=== PATIENT | male | born 1965 | race Caucasian/White ===

== ENCOUNTER 2022-09-18 19:29 | Emergency (ER) | payer MEDICAID, OTHER ==
[~2022-09-18] VITALS: Ht 175.3 cm; Wt 170.1 kg
[~2022-09-18 19:29] MED LIST: ALBUT2 CONTNEB; AZIT1PAC9 PO; FLUT1DIS3 INH; MULT-24 PO; OMEP20CA4 PO; POTA10TA PO; PRED20TA PO
[2022-09-18 19:49] VITALS: BP 187/97
--- NOTE | 2022-09-18 19:56 | NUR ---
BIBSELF FROM HOME C/O ULCER WOUND TO LEFT LOWER BUTTOCK X1 YEAR. PT A/OX4. TOLERATING R/A AT 91%. PT CHANGED IN GOWN. SAFETY MEASURES IN PLACE.
--- NOTE | 2022-09-18 19:57 | NUR ---
DR GUERRERO SOLIS AT PT'S BEDSIDE FOR EVAL
[2022-09-18] MEDS ORDERED: CLINDAMYCIN HCL 150 MG CAPSULE ONE (20:13)
[2022-09-18] MEDS ORDERED: CLIN300C12 PO (20:23)
[2022-09-18] MEDS ORDERED: CLINDAMYCIN HCL 150 MG CAPSULE PO ONE (20:30)
== END 2022-09-18 20:45 | disposition home or self-care (01) ==
LOC: ER 19:43
DX: L98.429 Non-pressure chronic ulcer of back with unspecified severity (principal); L08.9 Local infection of the skin and subcutaneous tissue, unspecified; I10 Essential (primary) hypertension; Z90.49 Acquired absence of other specified parts of digestive tract; Z79.899 Other long term (current) drug therapy; Z79.2 Long term (current) use of antibiotics